=== PATIENT | female | born 1945 | race Caucasian/White ===

== ENCOUNTER 2019-11-27 00:03 | Day surgery (SDC) | payer OTHER, SELFPAY ==
[2019-10-14 14:21] VITALS: BMI 27.9
--- NOTE | 2019-11-05 15:02 | PC.NURSE ---
PT.STATES NO CHANGE IN MEDICAL HX OR MEDICATIONS.
--- NOTE | 2019-11-27 07:31 | WPDHPUPDATE1 ---
History and Physical Update Update Date/Time: 11/27/19 07:31 History and Physical has been reviewed, including an updated exam of the patient. There are NO changes in the patient's condition. Risks, benefits, and alternatives have been discussed and questions answered. Patient agrees to proceed with procedure.
[2019-11-27 07:35] VITALS: BP 136/64; PULSE 72; RESP 18; TEMP 36.1; O2SAT 99
[2019-11-27 07:59] LABS: Glucose Point of Care 100 (65-105)
[2019-11-27] MEDS: LACTATED RINGERS 1,000 ML 30 ML IV CONT (08:10)
--- NOTE | 2019-11-27 08:35 | WPDANESEPPF ---
Anes - Initial Pre Proc Eval Procedure: Operation Date: 10/20/19 15:00 Proposed Procedures p Cystoscopy, Collagen Injection Bulking Agent - Ayo Hayes MD Operation Date: 11/27/19 09:15 Proposed Procedures p Cystoscopy, Injection Bulking Agent - Ayo Hayes MD Date/Time: 11/27/19 08:35 Surgeon: Ayo Hayes MD Pre Op Diagnosis: ISD Patient Data Age: 74 Gender: F Height: 1.61 m Weight: 68.9 kg Last Vital Signs Temp 36.1 C L 11/27/19 07:35 Pulse 72 11/27/19 07:35 Resp 18 11/27/19 07:35 BP 136/64 11/27/19 07:35 Pulse Ox 99 11/27/19 07:35 Allergies Allergy/AdvReac Type Severity Reaction Status Date / Time No Known Allergies Allergy Unverified 11/13/19 15:27 Home Medications Medication Instructions Recorded Confirmed Type atenolol 25 mg PO DAILY 10/14/19 11/27/19 History calcium carbonate-vitamin D3 1 tablet PO DAILY 10/14/19 11/27/19 History cholecalciferol (vitamin D3) 2,000 unit PO DAILY 10/14/19 11/27/19 History lisinopril 20 mg PO DAILY 10/14/19 11/27/19 History lorazepam 0.5 mg PO BID PRN 10/14/19 11/27/19 History or-eby-etbwa acid-lutein [Adult 1 tablet PO DAILY 10/14/19 11/27/19 History Multivitamin (w-lutein)] simvastatin 40 mg PO HS 10/14/19 11/27/19 History Laboratory Tests 11/27/19 07:57 POC Capillary Glucose 100 mg/dl mg/dl (65-105) Patient hx anesthesia problems: none Family hx anesthesia problems: none [facility] Past Medical History Medical History (Updated 11/26/19 @ 13:45 by Geovany Rivas DO) Anxiety (Acute) Elevated hemoglobin A1c (Acute) GERD (gastroesophageal reflux disease) (Acute) Hiatal hernia (Acute) History of breast cancer (Acute) Hyperlipidemia (Acute) Hypertension (Acute) Osteoarthritis (Acute) Surgical History Surgical History (Updated 11/26/19 @ 13:45 by Geovany Rivas DO) History of mastectomy (Acute) right side History of tonsillectomy (Acute) Family History Family History (System 11/13/19 @ 15:27 by Janeen Bucio) Mother Hypertension Family history of coronary artery disease, Onset Age: 78 Patient's mother is Family history of congestive heart failure Father Family history unknown Other Family history of cardiovascular disease Social History Social History (System 11/13/19 @ 15:27 by Janeen Bucio) Smoking status: Never smoker Second hand tobacco smoke exposure: Yes Alcohol intake: never Anes - Eval Final PreProcedure Day of Procedure 11/27/19 08:35 Patient weight: overweight Heart: regular rate and rhythm Lungs: clear to auscultation and normal air movement Airway: Mallampati scale class II Neurological: alert and oriented Last oral intake: >/= 8 hours ASA classification: III Emergent: no Anesthetic plan: proceed Anesthesia type and monitoring: general GIVS and standard monitoring Informed Consent: The patient's anesthetic plan and its attendant risks and benefits were discussed with the patient/family/POA. Questions were solicited and answers provided to the satisfaction of the patient/family/POA.
[2019-11-27] MEDS: ceFAZolin 2 GM/D5W 50 ML 2 GM/50 ML BAG IVPB (09:19)
[2019-11-27 09:50] VITALS: BP 113/62; PULSE 88; RESP 16; O2SAT 96
--- NOTE | 2019-11-27 09:59 | PM.PROC ---
Procedure Note - Detailed Date of procedure: 11/27/19 Pre-op diagnosis: ISD Intrinsic sphincter deficiency Post-op diagnosis: same Procedure performed: Cystoscopy with implantation of suburethral implant material [id number] Description of procedure: She was correctly identified and informed consent was obtained. She was brought to the operating room. She was given mac anesthesia. She was placed in the dorsal lithotomy position. She was prepped and draped in a sterile fashion. A time-out performed. Cystoscopy revealed no tumors in the bladder and an open urethra consistent with intrinsic sphincter deficiency. I injected the bulking agent into the urethra at the 10:00 a.m. to o'clock and 6 o'clock position. There is excellent bulking effect. Her bladder was drained with a 12 Thai red rubber catheter. She was awakened and transferred to the PACU in stable condition. Implants: Macroplastique Anesthesia: MAC Surgeon: Ayo Hayes MD Drains: No Packing: No Pathology: none sent Complications: No immediate complications Condition: stable Disposition: PACU
[2019-11-27 10:15] VITALS: BP 119/65; PULSE 73; RESP 17
== END 2019-11-27 10:25 | disposition home or self-care (01) ==
PROVIDERS: Visit Provider Urology
PROC: 3E0K8GC Introduction of Other Therapeutic Substance into Genitourinary Tract, Via Natural or Artificial Opening Endoscopic (ICD-10-PCS; CPT 51715; principal; 2019-11-27 09:15)
DX: N36.42 Intrinsic sphincter deficiency (ISD) (principal); I10 Essential (primary) hypertension; E78.5 Hyperlipidemia, unspecified; K21.9 Gastro-esophageal reflux disease without esophagitis; F41.9 Anxiety disorder, unspecified; M19.90 Unspecified osteoarthritis, unspecified site; Z85.3 Personal history of malignant neoplasm of breast
CPT/HCPCS: 51715; A9270; J0690; J2704; J3010; J7120; L8606

== ENCOUNTER 2024-08-07 12:07 | Outpatient (CLI) | payer OTHER, SELFPAY ==
--- NOTE | ~2024-08-07 | MM_ITS ---
EXAMINATION: MM screening kourtney LT w jia HISTORY: Screening mammogram TECHNIQUE: Craniocaudal and mediolateral oblique 3-D tomosynthesis images were obtained and synthetic 2-D images were generated. CAD analysis was submitted and interpreted. COMPARISON: No prior mammogram is available for comparison at this institution. BREAST PARENCHYMAL COMPOSITION:Dense: The breasts are heterogeneously dense, which may obscure small masses. FINDINGS: Extensive benign calcifications are present. No suspicious mass, calcification, or architec tural distortion are identified in either breast to suggest malignancy. IMPRESSION: No mammographic evidence of malignancy. Recommend routine screening mammography in one year. BI-RADS Category 2: Benign finding(s). Reviewed, dictated and finalized at location .
== END 2024-08-07 12:08 | disposition home or self-care (01) ==
LOC: MICIMG 12:09
PROVIDERS: PCP Family Medicine; Visit Provider Family Medicine
DX: Z12.31 Encounter for screening mammogram for malignant neoplasm of breast (principal)
CPT/HCPCS: 77063; 77067